=== PATIENT | female | born 1940 | race Two or more races ===

== ENCOUNTER 2019-01-11 13:28 | Outpatient (CLI) | payer MEDICARE, OTHER ==
[~2019-01-11 13:28] MED LIST: ARIMIDEX1 MG ORAL; ASPIRIN EC81 MG ORAL; CALCIUM 500 +1 EAC2 PO; GLUCOPHAGE500 MG ORAL; GLUCOSAMINE1000 M1 PO; IRON325 M1 PO; LIPITOR20 MG ORAL; LISINOPRIL20 MG ORAL; PROTONIX40 M2 GT; VITAMIN B COMP1 EAC2 ORAL; VITAMIN C500 M1 ORAL; VITAMIN D1000 UNI1 ORAL; VITAMIN E400 UNIT PO
[2019-01-11 16:33] VITALS: BP 140/63
[2019-01-11] MEDS ORDERED: NORVASC5 MG ORAL (16:33)
--- NOTE | 2019-01-11 18:00 | Consultation ---
DATE OF CONSULTATION: 01/11/2019 CONSULTING PHYSICIAN: Frank Mac M.D. CHIEF COMPLAINT: Referral for screening colonoscopy, abdominal pain, bloating. PAST MEDICAL HISTORY: 1. The patient has past medical history of gastric ulcer. 2. Constipation. 3. Diverticulosis. 4. Breast cancer. 5. Colonic polyps. 6. Anemia. 7. Internal hemorrhoids. 8. Iron deficiency. ALLERGIES: No known drug allergies. MEDICATIONS: Please see medication reconciliation list. SOCIAL HISTORY: The patient denies any tobacco, alcohol, or drug abuse. FAMILY HISTORY: Noncontributory. PAST SURGICAL HISTORY: The patient had breast cancer surgery. REVIEW OF SYSTEMS: Positive for on and off bloating, abdominal pain. No weight loss. No alarming sign and symptoms. PHYSICAL EXAMINATION: VITAL SIGNS: Temperature is 98.2, blood pressure is 131/64, pulse is 64, respirations 20. HEENT: Normocephalic and atraumatic. Sclerae anicteric. NECK: Supple. No evidence of obvious lymphadenopathy. CARDIOVASCULAR: Regular rate and rhythm. Plus S1 and S2. No obvious murmur. LUNGS: Clear to auscultation bilaterally. ABDOMEN: Positive bowel sounds. Soft and nontender. No rebound. No guarding. No peritoneal sign. EXTREMITIES: No cyanosis. No clubbing. No edema. ASSESSMENT AND PLAN: History of colonic polyps. The last colonoscopy over 5 years ago and needs repeat colonoscopy. The patient was scheduled for colonoscopy. She was given the prep and instruction. Also, the patient was given VSL#3 one tablet daily for bloating. As I mentioned, the patient is going to be scheduled for colonoscopy and will have a followup after that for further followup for further care. Frank Mac M.D. DR: DARLING JOB#: [id number] CC:
== END 2019-01-11 15:28 | disposition home or self-care (01) ==
LOC: PAN 13:28
DX: R10.9 Unspecified abdominal pain (principal); R14.0 Abdominal distension (gaseous); Z85.3 Personal history of malignant neoplasm of breast; Z86.010 Personal history of colon polyps
CPT/HCPCS: 99212

== ENCOUNTER 2019-02-05 06:59 | Day surgery (SDC) | payer MEDICARE, OTHER ==
[~2019-02-05] VITALS: Ht 152.4 cm; Wt 53.5 kg
[2019-02-05] VITALS (8 sets, daily range): BP systolic 105–155; BP diastolic 51–68
[~2019-02-05 06:59] MED LIST changes: +NORVASC5 MG ORAL
[2019-02-05] MEDS ORDERED: LR 1000ml 1,000 ML IVLG SCH (07:00)
[2019-02-05] MEDS ORDERED: LR 1000ml ONE (09:00)
[2019-02-05] MEDS ORDERED: Propofol 200mg/20ml IV ONE (09:00)
[2019-02-05] MEDS ORDERED: Lidocaine 1% MPF 10mg/ml 5ml ONE (09:00)
--- NOTE | 2019-02-05 09:01 | Pre-Procedure Note/Attestation ---
Pre-Procedure Note/Attestation Complete Prior to Procedure Planned Procedure: not applicable Procedure Narrative: colonoscopy Indications for Procedure Pre-Operative Diagnosis: screening Attestation I attest that I discussed the nature of the procedure; its benefits; risks and complications; and alternatives (and the risks and benefits of such alternatives ), prior to the procedure, with the patient (or the patient's legal utility sales representative). I attest that, if there was a reasonable possibility of needing a blood transfusion, the patient (or the patient's legal utility sales representative) was given the [facility] standardized written summary, pursuant to the [place] Blood Safety Act ([place] Health and Safety Code # 1645, as amended). I attest that I re-evaluated the patient just prior to the surgery and that there has been no change in the patient's H&P, except as documented below: Frank Mac MD Feb 05, 2019 09:01
--- NOTE | 2019-02-05 09:02 | Short Stay Surgery H&P ---
History of Present Illness History of Present Illness Chief Complaint see recent office note HPI Didi King is a 78 year old female who was admitted on for Colon Screening Patient History Allergies: Coded Allergies: CEPHALEXIN (Verified Allergy, Mild, 12/18/13) PENICILLINS (Verified Allergy, Mild, 12/18/13) Medication History Scheduled Amlodipine Besylate (Norvasc), 5 MG ORAL DAILY, (Reported) Ascorbic Acid* (Vitamin C*), 1,000 MG ORAL DAILY, (Reported) Atorvastatin Calcium* (Lipitor*), 40 MG ORAL BEDTIME, (Reported) Calcium Carbonate/Vitamin D3 (Calcium 500 + Vit D Caplet), 1 EACH PO DAILY, ( Reported) Cholecalciferol (Vitamin D3)* (Vitamin D*), 1,000 UNIT ORAL DAILY, (Reported) Lisinopril (Lisinopril*), 30 MG ORAL DAILY, (Reported) Metformin Hcl* (Glucophage*), 500 MG ORAL TWICE A DAY, (Reported) Vitamin B Complex (Vitamin B Complex), 1 CAP ORAL DAILY, (Reported) Vitamin E* (Vitamin E*), 400 UNIT PO DAILY, (Reported) Miscellaneous Medications Glucosamine Sulfate 2KCL (Glucosamine), 1,500 MG PO, (Reported) Discontinued Medications Pantoprazole Sodium (Protonix), 40 MG GT DAILY, (Reported) Discontinued Reason: Pt stopped taking med Physical Exam Vital Signs Last Vital Signs Date Time Temp Pulse Resp B/P (MAP) Pulse Ox O2 Delivery O2 Flow Rate FiO2 02/05/19 07:50 Room Air 02/05/19 07:43 97.8 56 18 138/60 99 Plan Attestation Are the patient's medical conditions optimized for surgery? Frank Mac MD Feb 05, 2019 09:02
--- NOTE | 2019-02-05 09:33 | Endoscopy Procedure Note ---
Endoscopy Procedure Note General Indication for Procedure: SCREENING Procedures Performed: colonoscopy Operative Findings/Diagnosis: HEMORRHOIDS Specimen: none Pt Tolerated Procedure Well: Yes Estimated Blood Loss: none Anesthesia Anesthesiologist: FRANCI Anesthesia: MAC Inserted Devices Implant(s) used?: No Quality Quality of Bowel Preparation: Fair Did scope reach the cecum?: Yes Was there any complications?: No GI Core Measures 50 yrs or older w/o bx or poly: No 10yrs. F/U recommended: Yes If not recommended, why?: Above average risk 18 years or older w/prev. colo: Yes <3yrs. since last colonoscopy: No Frank Mac MD Feb 05, 2019 09:33
--- NOTE | 2019-02-05 09:33 | Immediate Post-Op Evaluation ---
Immediate Post-Op Evalulation Immediate Post-Op Evalulation Procedure: colonoscopy Date of Evaluation: Feb 05, 2019 Time of Evaluation: 09:33 IV Fluids: 800 Blood Pressure Systolic: 127 Blood Pressure Diastolic: 60 Pulse Rate: 62 Respiratory Rate: 14 O2 Sat by Pulse Oximetry: 99 Nausea: No Vomiting: No Complications none Patient Status: awake, reacts, patent Hydration Status: adequate Drug: none Candy Dao CRNA Feb 05, 2019 09:33
--- NOTE | 2019-02-05 09:35 | Anethesia Preoperative Eval ---
Anesthesia Pre-op PMH/ROS General Date of Evaluation: Feb 05, 2019 Time of Evaluation: 09:00 Anesthesiologist: stacey ASA Score: ASA 2 Mallampati Score Class I : Soft palate, uvula, fauces, pillars visible Class II: Soft palate, uvula, fauces visible Class III: Soft palate, base of uvula visible Class IV: Only hard plate visible Mallampati Classification: Class II Surgeon: Bubba Diagnosis: Screening Surgical Procedure: Colonoscopy Anesthesia History: none Family History: no anesthesia problems Allergies: Coded Allergies: CEPHALEXIN (Verified Allergy, Mild, 12/18/13) PENICILLINS (Verified Allergy, Mild, 12/18/13) Medications: see eMAR Patient NPO?: Yes Past Medical History Cardiovascular: Reports: HTN Pulmonary: Denies: asthma, COPD, GEENA, other Gastrointestinal/Genitourinary: Denies: GERD, CRI, ESRD, other Neurologic/Psychiatric: Denies: dementia, CVA, depression/anxiety, TIA, other Endocrine: Reports: DM; Denies: hypothyroidism, steroids, other HEENT: Denies: cataract (L), cataract (R), glaucoma, INAJA (L), INAJA (R), other Hematology/Immune: Denies: anemia, DVT, bleeding disorder, other PSxH Narrative: colonoscopy Anesthesia Pre-op Phys. Exam Physician Exam Last Vital Signs Date Time Temp Pulse Resp B/P (MAP) Pulse Ox O2 Delivery O2 Flow Rate FiO2 02/05/19 07:50 Room Air 02/05/19 07:43 97.8 56 18 138/60 99 Constitutional: NAD Neurologic: CN 2-12 intact Cardiovascular: RRR Respiratory: CTA Gastrointestinal: S/NT/ND Airway Exam Mallampati Classification 2 Mallampati Score: Class II ROM: full Teeth: intact Dentures: no upper, no lower Anesthesia Pre-op A/P Studies Pre-op Studies: EKG - SR Risk Assessment & Plan Plan: mac Status Change Before Surgery: No Pre-Antibiotics Drug: none Candy Dao CRNA Feb 05, 2019 09:35
--- NOTE | 2019-02-05 14:15 | 48 Hour Post Anesthesia Eval ---
Post Anesthesia Evaluation Procedure: colonoscopy Date of Evaluation: Feb 05, 2019 Time of Evaluation: 14:15 Blood Pressure Systolic: 155 0: 68 Pulse Rate: 51 Respiratory Rate: 14 O2 Sat by Pulse Oximetry: 98 Airway: patent Nausea: No Vomiting: No Hydration Status: adequate Cardiopulmonary Status: stable Mental Status/LOC: patient returned to baseline Follow-up Care/Observations: na Post-Anesthesia Complications: none Follow-up care needed: N/A Candy Dao CRNA Feb 05, 2019 14:15
--- NOTE | 2019-02-05 14:45 | Procedure Note ---
DATE OF PROCEDURE: 02/05/2019 SURGEON: Frank Mac M.D. PROCEDURE: Colonoscopy. ANESTHESIA: Per the Candy HENDERSON. INSTRUMENT: Olympus adult flexible colonoscope. INDICATIONS: Screening colonoscopy. REASON FOR PROCEDURE: The procedure, risks, benefits, and possible consequences, including hemorrhage, aspiration, perforation and infection, and alternative treatments, were explained to the patient/legal guardian by Dr. Frank Mac and the patient/legal guardian understood and accepted these risks. PROCEDURE IN DETAIL: After informed consent was obtained and the patient was adequately sedated, first rectal exam was performed, which was normal. Then, the scope was advanced from the rectum into the cecum, then subsequently to terminal ileum. Quality of prep was fair. Unfortunately examination of the left colon was somewhat limited, I would say about 10 to 15 percent of the left side colon was not examined given this prep. The patient had no obvious polyp, mass, diverticulosis, or any pathology seen in this examination. Retroflexion of rectum showed evidence of internal hemorrhoids SUMMARY OF FINDINGS: 1. Internal hemorrhoid. 2. Somehow limited examination of the left colon, otherwise normal colonoscopy examination up to the terminal ileum. RECOMMENDATIONS: 1. Follow in the clinic for followup. 2. We recommend repeat colonoscopy no later than 5 years. Frank Mac M.D. DR: JODIE JOB#: [id number] CC:
== END 2019-02-05 10:20 | disposition home or self-care (01) ==
LOC: GAS 06:59
DX: Z12.11 Encounter for screening for malignant neoplasm of colon (principal); K64.8 Other hemorrhoids; Z79.899 Other long term (current) drug therapy; Z88.0 Allergy status to penicillin; Z88.8 Allergy status to other drugs, medicaments and biological substances; Z79.84 Long term (current) use of oral hypoglycemic drugs; I10 Essential (primary) hypertension; E11.9 Type 2 diabetes mellitus without complications
CPT/HCPCS: G0121; J2704; J7120; 94003; 94150

== ENCOUNTER 2020-04-21 14:02 | Outpatient (CLI) | payer MEDICARE, OTHER ==
[2020-04-21 14:38] VITALS: BP 186/70
--- NOTE | 2020-04-21 15:30 | General Progress Note ---
Subjective ROS Limited/Unobtainable: Yes Allergies: Coded Allergies: CEPHALEXIN (Verified Allergy, Mild, 12/18/13) PENICILLINS (Verified Allergy, Mild, 12/18/13) Objective Last 24 Hour Vital Signs Date Time Temp Pulse Resp B/P (MAP) Pulse Ox O2 Delivery O2 Flow Rate FiO2 04/21/20 14:38 97.5 64 16 186/70 General Appearance: no apparent distress EENT: normal ENT inspection Neck: normal alignment Cardiovascular: normal rate Respiratory/Chest: lungs clear Abdomen: normal bowel sounds, non tender, soft Extremities: non-tender Assessment/Plan Problem List: (1) Colon polyps ICD Codes: K63.5 - Colon polyps SNOMED: 80775358 (2) Breast cancer ICD Codes: C50.919 - Breast cancer SNOMED: 960672490 (3) Iron deficiency anemia ICD Codes: D50.9 - Iron deficiency anemia SNOMED: 12291582 (4) Diverticulosis ICD Codes: K57.90 - Diverticulosis SNOMED: 557519014 (5) Constipation ICD Codes: K59.00 - Constipation SNOMED: 10331963 Assessment/Plan: last colonoscopy 2018 trial of eda 72 RTC prn Frank Mac MD Apr 21, 2020 15:30
== END 2020-04-21 16:02 | disposition home or self-care (01) ==
LOC: PAN 14:02
DX: K63.5 Polyp of colon (principal); C50.919 Malignant neoplasm of unspecified site of unspecified female breast; D50.9 Iron deficiency anemia, unspecified; K57.90 Diverticulosis of intestine, part unspecified, without perforation or abscess without bleeding; K59.00 Constipation, unspecified
CPT/HCPCS: 99212